=== PATIENT | female | born 1980 ===

== ENCOUNTER 2016-08-31 11:03 | Emergency (ER) | payer OTHER ==
--- NOTE | 2016-08-31 12:38 | RAD ---
Indication: Right ankle pain. 3 views of the right ankle demonstrate soft tissue swelling laterally. There is no fracture or dislocation. Ankle mortise is intact. IMPRESSION: Soft tissue swelling laterally without fracture.
--- NOTE | 2016-08-31 13:33 | UC ---
Lower Extremity/Ankle HPI - HPI Summary HPI Summary: 35 y/o female presents to the urgent care c/o RT ankle pain and swelling s/p twisting her ankle while running on trail 2 hour ago. Pt reports she was able to ambulate after the injury. Pain now is 3/10 at rest and with movement is 5/ 10. Pt denies fever, SOB, chest pain, N/V/D. Pt reports she lives in [facility] and was here for the weekend. No other complains - History of Current Complaint Chief Complaint: UCLowerExtremity Stated Complaint: ANKLE INJURY Time Seen by Provider: 08/31/16 13:21 Hx Obtained From: Patient Hx Last Menstrual Period: 08/24/16 ?: No Onset/Duration: Sudden Onset, Lasting Hours Severity Initially: Moderate Severity Currently: Mild Pain Intensity: 5 - w/ movement Pain Scale Used: 0-10 Numeric Aggravating Factor(s): Ambulation Alleviating Factor(s): Rest Able to Bear Weight: Yes - Risk Factors Gout Risk Factors: Negative DVT Risk Factors: Negative Septic Arthritis Risk Factor: Negative - Allergies/Home Medications Allergies/Adverse Reactions: Allergies Allergy/AdvReac Type Severity Reaction Status Date / Time No Known Allergies Allergy Verified 08/31/16 12:01 PMH/Surg Hx/FS Hx/Imm Hx Previously Healthy: Yes - Surgical History Surgical History: Yes Surgery Procedure, Year, and Place: oral surgery - Family History Known Family History: Positive: None - Social History Occupation: Employed Full-time Lives: With Family Alcohol Use: Occasionally Substance Use Type: None Smoking Status (MU): Never Smoked Tobacco Review of Systems Constitutional: Negative Skin: Negative Eyes: Negative ENT: Negative Respiratory: Negative Cardiovascular: Negative Gastrointestinal: Negative Genitourinary: Negative Motor: Negative Neurovascular: Negative Musculoskeletal: Decreased ROM - RT ankle pain with swelling s/p fall Neurological: Negative Psychological: Negative All Other Systems Reviewed And Are Negative: Yes Physical Exam Triage Information Reviewed: Yes Appearance: Well-Appearing, No Pain Distress, Well-Nourished, Thin Vital Signs: Initial Vital Signs Temp 99.1 F 08/31/16 11:58 Pulse 75 08/31/16 11:58 Resp 18 08/31/16 11:58 BP 108/69 08/31/16 11:58 Pulse Ox 100 08/31/16 11:58 Vital Signs Reviewed: Yes Eye Exam: Normal Eyes: Positive: Conjunctiva Clear - PERRLA, EOMI,fundi grossly normal ENT Exam: Normal ENT: Positive: Normal ENT inspection, Hearing grossly normal, Pharynx normal, TMs normal Dental Exam: Normal Neck exam: Normal Neck: Positive: Supple, Nontender, No Lymphadenopathy Respiratory Exam: Normal Respiratory: Positive: Chest non-tender, Lungs clear, Normal breath sounds Cardiovascular Exam: Normal Cardiovascular: Positive: RRR, No Murmur, Pulses Normal Abdominal Exam: Normal Abdomen Description: Positive: Nontender, No Organomegaly, Soft. Negative: CVA Tenderness (R), CVA Tenderness (L) Bowel Sounds: Positive: Absent Musculoskeletal Exam: Normal Musculoskeletal: Positive: ROM Limited @ - RT lateral malleolus w/ moderate swelling, tender to palpation, Decrease ROM due to pain. Positive sensation, capillary refill brisk, positive pulses. Neurological Exam: Normal Psychological Exam: Normal Skin Exam: Normal Lower Extremity Course/Dx - Course Course Of Treatment: 35 y/o female presents to the urgent care c/o RT ankle pain and swelling s/p twisting her ankle while running on trail 2 hour ago. Pt reports she was able to ambulate after the injury. Pain now is 3/10 at rest and with movement is 5/10. Pt denies fever, SOB, chest pain, N/V/D. Pt reports she lives in [facility] and was here for the weekend. Hx obtained. PE abnormal findings:RT lateral malleolus w/ moderate swelling, tender to palpation, Decrease ROM due to pain. Positive sensation, capillary refill brisk, positive pulses. RT ankle x-ray ordered impression: soft tissue swelling, No fracture observed. Pt given Ibuprofen 800mg PO once at the clinic to alleviate pain and swelling. Tab given by nurse. Pt tolerated well medication. Rx ibuprofen prn, RT ankle immobilized with maureen bandage and an UC gel splint. Given crutches. Rx ibuprofen prn . Pt given copy of images. Advised RICE and to f/u with PCP in 1 week. If symptoms worsen to f/u with an orthopedic in [facility] in 2-3 days. Pt understood and agreed. Pt neurovascular intact after placement of splint. Left the clinic ambulating with the help of crutches. - Differential Dx/Diagnosis Differential Diagnosis/HQI/PQRI: Dislocation, Fracture (Closed), Sprain, Strain , Tendonitis Provider Diagnoses: RT ankle sprain Discharge - Discharge Plan Condition: Stable Disposition: HOME Prescriptions: Ibuprofen TAB* [Motrin TAB* 800 MG] 800 mg PO Q6H #20 tab Patient Education Materials: Ankle Sprain (ED), Crutch Instructions (ED) Referrals: [facility] [Outside] No Primary Care Phys,NOPCP [Primary Care Provider] - Additional Instructions: Please take medication as instructed after meals to alleviate pain and swelling. Keep your ankle immobilized with split x 1 week until you see f/u with your PCP in [facility], continue placing ICE and elevate leg. Do not put to much weight on your ankle. If symptoms worsen or not improvement f/u with an Orthopedic in [facility].
[2016-08-31] MEDS ORDERED: Ibuprofen TAB* 400 MG PO ONE (13:38)
== END 2016-08-31 14:08 | disposition home or self-care (01) ==
LOC: UCEAST 11:03
DX: S93.401A Sprain of unspecified ligament of right ankle, initial encounter (principal); Y93.02 Activity, running; Y92.838 Other recreation area as the place of occurrence of the external cause; Y99.8 Other external cause status
CPT/HCPCS: 99203; A9270-GY; G0463